=== PATIENT | male | born 1945 | race Caucasian/White ===

== ENCOUNTER 2020-04-19 11:01 | Outpatient (CLI) | payer MEDICARE ==
[2020-04-20 03:13] LABS: SARS-CoV-2 MS2 Positive; SARS-CoV-2 N Gene Negative; SARS-CoV-2 S Gene Negative; SARS-CoV-2 by NAA Not Detected (NotDetected); SARS-CoV-2 orf1ab Negative
== END 2020-04-19 11:02 | disposition home or self-care (01) ==
LOC: LABBT 11:01
PROVIDERS: ATTEND Neurological Surgery
DX: M54.16 Radiculopathy, lumbar region (principal); Z20.828 Contact with and (suspected) exposure to other viral communicable diseases
CPT/HCPCS: 87635; U0003

== ENCOUNTER 2020-04-23 09:31 | Day surgery (SDC) | payer MEDICARE ==
[2020-04-20 12:59] VITALS: BMI 38.7
[2020-04-23] MEDS ORDERED: Fentanyl 100 MCG/2 ML VIAL ONE (10:42)
[2020-04-23] MEDS ORDERED: Midazolam HCl 2 mg/2 ml Vial ONE (10:42)
--- NOTE | 2020-04-23 11:36 | MRI ---
MR the lumbar spine without contrast INDICATION: Lumbar radiculopathy and disc degenerative disease COMPARISON: None. TECHNIQUE: Multiplanar multisequence MR images were obtained of lumbar spine without IV contrast. FINDINGS: Motion artifact slightly limits image detail. Bone marrow: There is mild type I Modic endplate degenerative change at L4-5. There is type II Modic end plate degenerative changes at L3-4. Distal spinal cord and conus: Normal. The conus seen to terminate at L1. Visualized retroperitoneum and paraspinal soft tissues: Normal. Vertebral levels: L5-S1: There is a broad-based disc bulge with loss of disc space height and facet hypertrophy inducin g moderate to severe right and moderate left neural foraminal narrowing. The facet hypertrophy in addition to the broad-based bulge induces moderate right and mild left lateral recess narrowing. Ther e is mild central canal narrowing at this level.. L4-5: There is a broad-based disc osteophyte complex with facet hypertrophy inducing moderate central canal narrowing with severe bilateral neural foraminal narrowing. L3-4: There is a broad-based disc osteophyte complex with facet hypertrophy inducing mild central can al narrowing with severe left and moderate right neural foraminal narrowing L2-3: There is a broad-based bulge with facet hypertrophy inducing moderate bilateral neural foramina l narrowing, left greater than right L1-L2: There is a broad-based bulge with facet hypertrophy inducing moderate bilateral neural foramin al narrowing T12-L1: No appreciable central canal or neuroforaminal narrowing. IMPRESSION: 1. Prominent multilevel neural foraminal narrowing as detailed above. 2. Mild central canal narrowing with moderate right and mild left lateral recess narrowing at L5-S1 d ue to facet hypertrophy and a broad-based bulge. 3. Moderate central canal narrowing at L4-5. 4. Mild central canal narrowing at L3-4.
[2020-04-23] MEDS ORDERED: Lidocaine 1% PF 5 ML VIAL ONE (15:19)
[2020-04-23] MEDS ORDERED: PROPOFOL 200 MG/20 ML VIAL ONE (15:19)
== END 2020-04-23 12:43 | disposition home or self-care (01) ==
LOC: SDC 09:31 → EDSTATUS 12:00 → SDC 12:43
PROVIDERS: ATTEND Neurological Surgery
DX: M51.16 Intervertebral disc disorders with radiculopathy, lumbar region (principal); I10 Essential (primary) hypertension; E78.5 Hyperlipidemia, unspecified; Z79.899 Other long term (current) drug therapy; Z87.891 Personal history of nicotine dependence
CPT/HCPCS: 72148; J2250; J2704; J3010

== ENCOUNTER 2020-11-14 08:34 | Outpatient (CLI) | payer MEDICARE ==
[2020-11-14 09:47] LABS: #Eosinphils 0.1 10x3/uL (0.0-0.5); #Monocytes 0.6 10x3/uL (0.0-1.1); #Neutrophils 2.9 10x3/uL (1.5-8.4); %Basophils 0.3 % (0.0-2.0); %Lymphocytes 48.7 % (18.0-47.0); %Monocytes 8.8 % (0.0-10.0); %Neutrophils 40.5 % (40.0-75.0); Hemoglobin 15.2 g/dL (13.5-17.5); Mean Corpuscular HGB CONC 32.9 g/dL (32.0-36.0); Mean Corpuscular Volume 91.3 fl (81.2-95.1); Mean Platelet Volume 9.3 fl (7.4-10.4); Platelet Count 250 10x3/uL (150-450); RBC Distribution Width 13.2 % (11.5-14.5); Red Blood Cell (RBC) Count 5.06 10x6/uL (4.32-5.72); White Blood Cell (WBC) Count 7.1 10x3/uL (3.5-10.5)
[2020-11-14 10:14] LABS: Anion Gap 17 mmol/L (10-20); BUN (Urea Nitrogen) 23 mg/dL (8.4-25.7); Calc. Creatinine Clearance 0 mL/min (70-130); Calcium 9.7 mg/dL (7.8-10.44); Carbon Dioxide 27 mmol/L (23-31); Chloride 101 mmol/L (98-107); Glucose 91 mg/dL (83-110); Potassium 4.4 mmol/L (3.5-5.1); Sodium 141 mmol/L (136-145)
== END 2020-11-14 08:35 | disposition home or self-care (01) ==
LOC: LABBT 08:34
PROVIDERS: ATTEND Neurological Surgery
DX: Z01.818 Encounter for other preprocedural examination (principal); M54.16 Radiculopathy, lumbar region
CPT/HCPCS: 80048; 85025; 93005; 93010

== ENCOUNTER 2020-11-19 06:46 | Observation (INO) | payer MEDICARE ==
[2020-11-16 10:59] VITALS: BMI 37.2
[2020-11-19] MEDS ORDERED: Fentanyl 250 MCG/5 ML VIAL ONE (09:13)
[2020-11-19] MEDS ORDERED: Dexmedetomidine 200 MCG/2 ML VIAL ONE (09:13)
[2020-11-19] MEDS ORDERED: Midazolam HCl 2 mg/2 ml Vial ONE (09:30)
[2020-11-19] MEDS ORDERED: Lidocaine 1% PF 5 ML VIAL ONE (09:44)
[2020-11-19] MEDS ORDERED: PHENYLEPHRINE-NS 100 MCG/ML 10 ML SYRINGE ONE (09:44)
[2020-11-19] MEDS ORDERED: Rocuronium Bromide 10 MG/ML (10ML VIAL) ONE (09:44)
[2020-11-19] MEDS ORDERED: Ketorolac Tromethamine 30 MG/ML VIAL ONE (09:44)
[2020-11-19] MEDS ORDERED: PROPOFOL 200 MG/20 ML VIAL ONE (09:44)
[2020-11-19] MEDS ORDERED: Ondansetron PF 4 MG/2 ML Vial ONE (09:44)
[2020-11-19] MEDS ORDERED: Dexamethasone 20 MG/5 ML VIAL ONE (09:44)
[2020-11-19] MEDS ORDERED: SUGAMMADEX SODIUM 200 MG/2 ML VIAL ONE ×2 (11:06→11:19)
[2020-11-19] MEDS ORDERED: Tamsulosin HCl 0.4 MG CAP ONE (13:39)
[2020-11-19] MEDS ORDERED: Ampicillin 2 GM VIAL ONE (17:09)
[2020-11-19] MEDS ORDERED: Morphine 2 MG/ML VIAL SLOW IVP PRN (20:15)
[2020-11-19] MEDS ORDERED: Milk Of Magnesia 30 ML UDCUP PO PRN (20:15)
[2020-11-19] MEDS ORDERED: Ondansetron PF 4 MG/2 ML Vial IM PRN (20:15)
[2020-11-19] MEDS ORDERED: Promethazine HCl 25 MG/ML VIAL IM PRN (20:15)
[2020-11-19] MEDS ORDERED: Mag-Al 1200 mg/1200 mg/30 ML UDCUP PO PRN (20:15)
[2020-11-19] MEDS ORDERED: Promethazine HCl 12.5 MG SUPP PR PRN (20:15)
[2020-11-19] MEDS ORDERED: diphenhydrAMINE 50 MG/ML VIAL IVP PRN (20:15)
[2020-11-19] MEDS ORDERED: tiZANidine HCl 4 MG TAB PO PRN (20:15)
[2020-11-19] MEDS ORDERED: Promethazine 25 MG TAB PO PRN (20:15)
[2020-11-19] MEDS ORDERED: traMADol HCl 50 MG TAB PO PRN ×2 (20:15)
[2020-11-19] MEDS ORDERED: Acetaminophen/Codeine 30-300mg Tablet PO PRN ×2 (20:15)
[2020-11-19] MEDS ORDERED: diphenhydrAMINE 25 MG CAP PO PRN (20:15)
[2020-11-19] MEDS ORDERED: Morphine 4 MG/ML VIAL SLOW IVP PRN (20:15)
[2020-11-19] MEDS: Sodium Chloride 0.9% 1,000 ML IV SCH (20:37)
[2020-11-19] MEDS: CEFAZOLIN 2 GM in Premix Bag 1 BAG IVPB SCH (20:37)
[2020-11-20] MEDS: CEFAZOLIN 2 GM in Premix Bag 1 BAG IVPB SCH (03:18)
[2020-11-20] MEDS ORDERED: Tamsulosin HCl 0.4 MG CAP PO SCH (06:00)
[2020-11-20 07:08] VITALS: TEMP 97.9
[2020-11-20] MEDS: Sodium Chloride 0.9% 1,000 ML IV SCH (08:12)
[2020-11-20] MEDS ORDERED: Nebivolol HCl 5 MG TAB PO SCH (09:00)
[2020-11-20] MEDS ORDERED: Ezetimibe 10 MG TAB PO SCH (09:00)
[2020-11-20] MEDS ORDERED: Losartan 25 MG TAB PO SCH (09:00)
[2020-11-20] MEDS ORDERED: Hydrochlorothiazide 25 MG TAB PO SCH (09:00)
[2020-11-20 10:04] VITALS: BP 157/90
== END 2020-11-20 10:40 | disposition home or self-care (01) ==
LOC: SDC 06:46 → INTOOBSV 12:04 → T4-A 12:04
PROVIDERS: ADMIT Neurological Surgery; ATTEND Neurological Surgery
PROC: 0SG00AJ Fusion of Lumbar Vertebral Joint with Interbody Fusion Device, Posterior Approach, Anterior Column, Open Approach (ICD-10-PCS; principal; 2020-11-19)
PROC: 0SG30AJ Fusion of Lumbosacral Joint with Interbody Fusion Device, Posterior Approach, Anterior Column, Open Approach (ICD-10-PCS; 2020-11-19)
DX: M48.062 Spinal stenosis, lumbar region with neurogenic claudication (principal); M54.16 Radiculopathy, lumbar region; M48.07 Spinal stenosis, lumbosacral region; I10 Essential (primary) hypertension; E78.5 Hyperlipidemia, unspecified; N40.0 Benign prostatic hyperplasia without lower urinary tract symptoms; E66.9 Obesity, unspecified; Z68.37 Body mass index [BMI] 37.0-37.9, adult; Z79.899 Other long term (current) drug therapy; Z96.641 Presence of right artificial hip joint; Z96.652 Presence of left artificial knee joint; Z98.84 Bariatric surgery status; Z87.891 Personal history of nicotine dependence
CPT/HCPCS: 20930; 20936; 22633; 22634; 22842; 22853 ×2; 76000; 97116; 97139; C1768; G0378; J0290; J0690; J1100; J1885; J2250; J2405; J2704; J3010; J3370

== ENCOUNTER 2021-01-16 13:12 | Outpatient (CLI) | payer MEDICARE | END 2021-01-16 13:13 | disposition home or self-care (01) | LOC: TBSIIMAG 13:12 | PROVIDERS: ATTEND Neurological Surgery | DX: M54.16 Radiculopathy, lumbar region (principal) | CPT/HCPCS: 72100 ==